=== PATIENT | female | born 1990 | race Caucasian/White ===

== ENCOUNTER 2020-08-01 20:01 | Emergency (ER) | payer OTHER ==
[~2020-08-01] VITALS: Ht 162.6 cm; Wt 67.0 kg
[2020-08-01] MEDS ORDERED: ZOLO100T PO (20:39)
[2020-08-01] MEDS ORDERED: XANA1TAB2 PO (20:39)
[2020-08-01] MEDS ORDERED: TRAZ1TAB10 PO (20:39)
[2020-08-01] MEDS ORDERED: ACETAMINOPHEN 325 MG TAB PO ONE (22:45)
[2020-08-01] MEDS ORDERED: ONDANSETRON 4 MG ORAL DISINTEGRATING TAB PO ONE (22:45)
[2020-08-01] MEDS ORDERED: ZOFR4TAB16 PO (22:59)
[2020-08-01 23:15] VITALS: BP 126/79
== END 2020-08-01 23:19 | disposition home or self-care (01) ==
LOC: M ED 20:01
DX: F15.20 Other stimulant dependence, uncomplicated (principal); Z79.899 Other long term (current) drug therapy
CPT/HCPCS: 99284; Q0162